=== PATIENT | female | born 1985 | race Caucasian/White ===

== ENCOUNTER 2019-03-04 20:06 | Inpatient (IN) | payer BC ==
[~2019-03-04] VITALS: Ht 167.6 cm; Wt 70.0 kg
[2019-03-04] MEDS ORDERED: KETOROLAC 30 MG INJ IV STA (20:13)
[2019-03-04 20:17] VITALS: Ht 167.6 cm; Wt 70.0 kg
[2019-03-04 20:24] VITALS: BP 102/68; PULSE 84; RESP 17
[2019-03-04] MEDS ORDERED: LIDOCAINE 1% (MPF) 30 ML INJ INJ PRN (20:30)
[2019-03-04] MEDS ORDERED: OXYTOCIN 30 UNITS/LR 500 ML IV SCH ×3 (20:30→23:52)
[2019-03-04] MEDS ORDERED: MISOPROSTOL 200 MCG TAB PR PRN (20:30)
[2019-03-04] MEDS ORDERED: OXYTOCIN 30 UNITS/LR 500 ML IV PRN (20:30)
[2019-03-04] MEDS ORDERED: BUTORPHANOL 2 MG INJ IV PRN (20:30)
[2019-03-04] MEDS ORDERED: METHYLERGONOVINE 0.2 MG INJ IM PRN (20:30)
[2019-03-04] MEDS ORDERED: CARBOPROST 250 MCG INJ IM PRN (20:30)
[2019-03-04] MEDS ORDERED: IBUPROFEN 600 MG TAB PO PRN (20:30)
[2019-03-04] MEDS: HYDROCODONE/APAP (5/325) TAB PO PRN (21:33)
--- NOTE | 2019-03-04 23:02 | HP ---
Date/Time of Note Date/Time of Note DATE: 03/04/19 TIME: 22:58 OB - History Hx of Present Free Text/Dictation 03/04/2019 : 2 Para: 1 Spontaneous : 0 Therapeutic : 0 Care: Good Care Other Concerns: 33-year-old G2, P1 with IUP at 40 weeks and care in [facility] was brought by ambilance and by paramedics after she had delivered the baby at home. Per patient had precipitous vaginal delivery at home 2 hours after she had spontaneous rupture membrane. Reports she was seen in the doctor's office today and was 3 cm dilated. Per patient, was sent home due to no cervical change for the past week during office visit exam. Patient reports history of anemia and chronic disease during , but had been stable during and asymptomatic.. She was not on any medication. She delivered a baby at home. Cord was cut by paramedics. Denies any incidents to the fetus. Fetus was delivered when the patient was on the floor and without any trauma to the fetus. Placenta was then delivered shortly after delivery of the fetus. Upon arrival patient had moderate to heavy vaginal bleeding with passing large clots. Reported having cramps. Exam performed and noted to have second-degree perineal laceration. No records was available at the time of adhesion. Estimated blood loss: 900 cc Past medical history: 1. History of anemia 2. History of chronic disease Past surgical history: None History: NKDA Social history: Denies of smoking drinking alcohol or using any drugs MOBILE SALES EXPERT history: G2, P2. Status post x2, precipitous delivery, hemorrhage and second status post spontaneous rupture membrane. 2 hours prior to delivery Past Family/Social History * Past Medical, Surgical, Family and Obstetric Histories reviewed from chart. OB Admission Exam Vital Signs Vital Signs Vital Signs Date Temp Pulse Resp B/P (MAP) Pulse Ox O2 O2 Flow FiO2 Time Delivery Rate 03/04/19 98.0 84 17 102/68 Room Air 20:24 (79) Physical Exam HEENT: WNL Lungs: Clear Abdomen: WNL Extremities: Normal Reflexes: Normal Cervical Dilatation: 10cm Effacement: 100% Station: Other (Status post at home) Membranes: Ruptured Heart Rate: 130's Last 72 hours Lab Results CBC & BMP 03/04/19 20:44 OB Assessment/Plan Other Assessment: IUP at 40 weeks Precipitous delivery after SROM at home hemorrhage. Controlled using IV Pitocin and uterine massage second-degree perineal laceration noted in the evaluation of the perineum. After local infiltration of 6 cc lidocaine using 2-0 chromic the area repaired. Hemostasis was complete. No complication Fundus was firm at the end of the delivery. Patient will be transferred to floor, after 1 hour observation. Follow-up with CBC and hemoglobin. Patient currently asymptomatic however precaution was given to have ambulation with nursing assistance Follow-up with hemoglobin WU OCONNOR MD March 04, 2019 23:02
--- NOTE | 2019-03-04 23:43 | DELSUM ---
Delivery Summary A-C Datetime Report Generated by CPN: 03/04/2019 23:43 DELIVERY PERSONNEL Financial Cost Analyst: Ulloa, Ramya MATERNAL INFORMATION Delivery Anesthesia: None Medications in Delivery: 30 UNIT PITOCIN Delivery QBL (ml): 948 Placenta Cultured: No Maternal Complications: Precip Labor <3hrs; Other Other Maternal Complications: PT DELIVERED AT HOME LABOR SUMMARY EDC: 03/04/2019 00:00 No. Babies in Womb: 1 Attempted: No Labor Anesthesia: None LABOR INFORMATION Reason for Induction: Not Applicable Onset of Labor: 03/04/2019 19:00 Onset of Labor: 03/04/2019 19:09 Complete Dilatation: 03/04/2019 19:33 Oxytocin: N/A Group B Beta Strep: Negative Group B Beta Strep: Done, Result Unknown Antibiotics # of Doses: 0 Steroids Given: None Reason Steroids Not Administered: Not Applicable MEMBRANES Membranes Rupture Method: Spontaneous Rupture of Membranes: 03/04/2019 19:09 Length of Rupture (hr): 0.40 Amniotic Fluid Color: Clear STAGES OF LABOR Stage 1 hr: 0 Stage 1 hr: 0 Stage 1 min: 33 Stage 1 min: 24 Stage 2 hr: 0 Stage 2 min: 0 Stage 3 hr: 0 Stage 3 min: 12 Total Time in Labor hr: 0 Total Time in Labor hr: 0 Total Time in Labor min: 45 Total Time in Labor min: 36 VAGINAL DELIVERY Episiotomy: None Laceration Extension: Second Degree Laceration Type: Perineal Laceration Repair: Yes Initial Vag Sponge Count: 10 Final Vag Sponge Count: 10 Initial Vag Sharps Count: 1 Final Vag Sharps Count: 2 Sponge Count Correct: Yes; Vaginal Sweep Performed Sharps Count Correct: Yes BABY A INFORMATION Infant Delivery Date/Time: 03/04/2019 19:33 Method of Delivery: Vaginal Born in Route : Yes : N/A Forceps: N/A Vacuum Extraction: N/A Shoulder Dystocia : N/A SHOULDER DYSTOCIA BABY A Delivery Date/Time: 03/04/2019 19:33 PRESENTATION/POSITION BABY A Presentation: Cephalic Cephalic Presentation: Vertex Breech Presentation: N/A PLACENTA INFORMATION BABY A Placenta Delivery Time : 03/04/2019 19:45 Placenta Method of Delivery: Spontaneous Placenta Status: Delivered SCORES BABY A Heart Rate 1 min: >100 bpm Resp Effort 1 min: Slow, Irregular Reflex Irritability 1 min: Grimace Muscle Tone 1 min: Some Flexion of Extrem Color 1 min: Body [place], Extremit Blue SCORE 1 MIN: 6 Heart Rate 5 min: Slow, Below 100 bpm Resp Effort 5 min: Good Cry Reflex Irritability 5 min: Grimace Muscle Tone 5 min: Some Flexion of Extrem Color 5 min: Completely [place] SCORE 5 MIN: 7 Heart Rate 20 min: >100 bpm Resp Effort 20 min: Good Cry Reflex Irritability 20 min: Cough/Sneeze/Pulls Away Muscle Tone 20 min: Active Motion Color 20 min: Completely [place] SCORE 20 MIN: 10 INFORMATION BABY A Gestational Age at Delivery: 40.0 Gestational Status: Full Term- 39- 40.6 Weeks Outcome : Liveborn Condition : Stable Sex: Female IDENTIFICATION/MEDS BABY A ID Band Number: [id number] ID Band Location: Right Leg; Left Arm Sensor Applied: Yes Sensor Number: [id number] Sensor Location : Cord Clamp Vitamin K Given : Not Given Erythromycin Given: Not Given WEIGHT/LENGTH BABY A Birthweight (gm): 3435 Infant Weight (lb): 7 Infant Weight (oz): 9 Length (in): 19.00 Length (cm): 48.26 CORD INFORMATION BABY A No. Cord Vessels: 3 Nuchal Cord : N/A Cord Blood Taken: No Infant Suction: Mouth; Nose ASSESSMENT BABY A Infant Complications: None Physical Findings at Delivery: Within Normal Limits Infant Respirations: Appears Normal Motor Vehicle Salesperson/ALS Called : No Infant Care By: Domitila KENNEDY Transferred To: Remains with Mother
[2019-03-05] MEDS ORDERED: NACL 0.9% 3 ML SYG IV SCH
[2019-03-05] MEDS ORDERED: HYDROCODONE/APAP (5/325) TAB PO PRN ×2
[2019-03-05] MEDS ORDERED: OXYCODONE/ASPIRIN (4.88/325) TAB PO PRN ×2
[2019-03-05] MEDS ORDERED: METHYLERGONOVINE 0.2 MG INJ IM PRN
[2019-03-05] MEDS ORDERED: OXYTOCIN 30 UNITS/LR 500 ML IV PRN
[2019-03-05] MEDS ORDERED: CARBOPROST 250 MCG INJ IM PRN
[2019-03-05] MEDS ORDERED: MISOPROSTOL 200 MCG TAB PR PRN
[2019-03-05 01:02] VITALS: BP 108/65; PULSE 68; RESP 19
[2019-03-05 04:00] VITALS: BP 104/63; PULSE 65; RESP 19
[2019-03-05] MEDS: IBUPROFEN 600 MG TAB PO SCH ×4 (06:00→20:08)
[2019-03-05] MEDS: HYDROCODONE/APAP (5/325) TAB PO PRN ×3 (07:22→20:06)
[2019-03-05] MEDS ORDERED: LANOLIN HPA 1 PKT TOP PRN (15:30)
[2019-03-05] MEDS ORDERED: BENZOCAINE 20% 56 ML SPRAY TOP PRN (15:30)
[2019-03-05 16:00] VITALS: BP 95/63; PULSE 83; RESP 18
--- NOTE | 2019-03-05 17:21 | PN ---
Date/Time of Note Date/Time of Note DATE: 03/05/19 TIME: 17:18 OB Subjective Subjective Subjective Patient denies any dizziness or lightheadedness. Breast-feeding. Ambulating. Reports fatigue. OB Objective Objective Objective General appearance: Alert and oriented x4 does not appear to be in any acute distress Abdomen: Soft, fundus firm and palpable at the level of my umbilicus and nontender Breasts: No evidence of engorgement mastitis Extremities: No calf tenderness, no click no edema no cord palpable VS - Last 72 Hours, by Label Date Temp Pulse Resp B/P (MAP) Pulse Ox O2 O2 Flow FiO2 Time Delivery Rate 03/05/19 98.0 65 19 104/63 Room Air 04:00 (77) 03/05/19 98.1 68 19 108/65 Room Air 01:02 (79) 03/04/19 98.0 84 17 102/68 Room Air 20:24 (79) Laboratory Tests Test 03/04/19 20:44 03/05/19 08:15 White Blood Count 12.3 H Red Blood Count 3.40 L Hemoglobin 9.7 L 7.7 #L Hematocrit 29.9 L 23.3 #L Mean Corpuscular Volume 87.9 Mean Corpuscular Hemoglobin 28.5 L Mean Corpuscular Hemoglobin Concent 32.4 Red Cell Distribution Width 15.2 H Platelet Count 221 Mean Platelet Volume 10.5 H Immature Granulocytes % 1.500 H Neutrophils % 78.4 H Lymphocytes % 13.2 L Monocytes % 6.3 Eosinophils % 0.3 Basophils % 0.3 Nucleated Red Blood Cells % 0.0 Immature Granulocytes # 0.190 H Neutrophils # 9.7 H Lymphocytes # 1.6 Monocytes # 0.8 Eosinophils # 0.0 Basophils # 0.0 Nucleated Red Blood Cells # 0.0 Prothrombin Time 13.3 Prothrombin Time Ratio 1.0 INR International Normalized Ratio 1.00 Activated Partial Thromboplast Time 23.8 Hepatitis B Surface Antigen NEGATIVE OB Assessment/Plan Other Assessment: day #1 Status post SR OM, precipitous delivery at home, brought by ambulance Anemia, hemorrhage. Patient reports fatigue. Hemodynamically stable Desires to start iron History of chronic disorder, was told by her GI not to take NSAIDs Cramps, responds well to Morrice Routine care Iron twice a day with stool softener Morrice for cramping WU OCONNOR MD March 05, 2019 17:21
[2019-03-05] MEDS ORDERED: DOCUSATE SODIUM 100 MG CAP PO SCH (17:30)
[2019-03-05 20:05] VITALS: BP 95/68; PULSE 85; RESP 18
[2019-03-05] MEDS: POLYSACCHARIDE IRON COMPLEX CAP PO SCH (20:06)
[2019-03-05] MEDS: LACTATED RINGER'S 1,000 ML IV SCH ×3 (20:07→23:00)
[2019-03-05] MEDS: DOCUSATE SODIUM 100 MG CAP PO PRN (20:15)
[2019-03-06 04:25] VITALS: BP 99/60; PULSE 87; RESP 18
[2019-03-06] MEDS: IBUPROFEN 600 MG TAB PO SCH ×3 (06:00→12:00)
[2019-03-06] MEDS: LACTATED RINGER'S 1,000 ML IV SCH (07:00)
[2019-03-06 08:00] VITALS: BP 94/57; PULSE 101; RESP 17
[2019-03-06] MEDS: POLYSACCHARIDE IRON COMPLEX CAP PO SCH (09:12)
[2019-03-06] MEDS: DOCUSATE SODIUM 100 MG CAP PO PRN (09:12)
--- NOTE | 2019-03-06 15:07 | PD.PPDC ---
SYSTEM DEVELOPMENT MANAGER Discharge Instruction Diagnosis [id number] Final Diagnosis: Negau2z S/P anemia Condition [id number] Patient Condition: [id number] Stable Diet [id number] Diet: Qikdv6n Resume Regular Diet Activity/Restrictions [id number] Activity: Uqhkc1r May Shower [id number] Restrictions: Cwssz5n No Exercising No Lifting No Sexual Activity Nothing in the Vagina No [place] No Tampons, douche Follow-up Follow-up with Physician: 2, Week/Weeks Return to clinic for [id number] TAX ACCOUNTING ASSISTANT Instructions: [id number] Fever greater than 101 Chills Worsening abdominal pain Excessive Vaginal Bleeding More than 2 pads per hour Unable to tolerate diet Dulll0Ee OB Instructions: [id number] Breast Tenderness Depression Blurried Vision Headache OLVIN PAREDES MD March 06, 2019 15:07
--- NOTE | 2019-03-06 18:23 | DS ---
Date/Time of Note Date/Time of Note DATE: 03/06/19 TIME: 18:20 Obstetrical Discharge Record Final Diagnosis Final Diagnosis: Term delivered Other Final Diagnosis anemia Vaginal Delivery Obstetrical Delivery: Spontaneous, Laceration, Repaired Complications Augmentation: No Induction: No Rupture of Membranes: No Condition on Discharge Physical Assessment Last Vitals: vss afebrile Voiding: Yes Bowel Movement: No Breast: Soft, non-tender Fundus: Firm Abdomen and Incision: n/a Episiotomy: n/a only laceration Calf Tenderness: No Patient Condition: Stable OLVIN PAREDES MD March 06, 2019 18:23
--- NOTE | 2019-03-07 16:59 | DELSUM ---
Delivery Summary A-C Datetime Report Generated by CPN: 03/07/2019 16:58 DELIVERY PERSONNEL Senior Product Designer: Ulloa, Ramya MATERNAL INFORMATION Delivery Anesthesia: None Medications in Delivery: 30 UNIT PITOCIN Delivery QBL (ml): 948 Placenta Cultured: No Maternal Complications: Precip Labor <3hrs; Other Other Maternal Complications: PT DELIVERED AT HOME LABOR SUMMARY EDC: 03/04/2019 00:00 No. Babies in Womb: 1 Attempted: No Labor Anesthesia: None LABOR INFORMATION Reason for Induction: Not Applicable Onset of Labor: 03/04/2019 19:00 Complete Dilatation: 03/04/2019 19:33 Oxytocin: N/A Group B Beta Strep: Negative Antibiotics # of Doses: 0 Steroids Given: None Reason Steroids Not Administered: Not Applicable MEMBRANES Membranes Rupture Method: Spontaneous Rupture of Membranes: 03/04/2019 19:09 Length of Rupture (hr): 0.40 Amniotic Fluid Color: Clear STAGES OF LABOR Stage 1 hr: 0 Stage 1 min: 33 Stage 2 hr: 0 Stage 2 min: 0 Stage 3 hr: 0 Stage 3 min: 12 Total Time in Labor hr: 0 Total Time in Labor min: 45 VAGINAL DELIVERY Episiotomy: None Laceration Extension: Second Degree Laceration Type: Perineal Laceration Repair: Yes Initial Vag Sponge Count: 10 Final Vag Sponge Count: 10 Initial Vag Sharps Count: 1 Final Vag Sharps Count: 2 Sponge Count Correct: Yes; Vaginal Sweep Performed Sharps Count Correct: Yes BABY A INFORMATION Infant Delivery Date/Time: 03/04/2019 19:33 Method of Delivery: Vaginal Born in Route : Yes : N/A Forceps: N/A Vacuum Extraction: N/A Shoulder Dystocia : N/A SHOULDER DYSTOCIA BABY A Infant Delivery Date/Time: 03/04/2019 19:33 PRESENTATION/POSITION BABY A Presentation: Cephalic Cephalic Presentation: Vertex Breech Presentation: N/A PLACENTA INFORMATION BABY A Placenta Delivery Time : 03/04/2019 19:45 Placenta Method of Delivery: Spontaneous Placenta Status: Delivered SCORES BABY A Heart Rate 1 min: >100 bpm Resp Effort 1 min: Slow, Irregular Reflex Irritability 1 min: Grimace Muscle Tone 1 min: Some Flexion of Extrem Color 1 min: Body [place], Extremit Blue SCORE 1 MIN: 6 Heart Rate 5 min: Slow, Below 100 bpm Resp Effort 5 min: Good Cry Reflex Irritability 5 min: Grimace Muscle Tone 5 min: Some Flexion of Extrem Color 5 min: Completely [place] SCORE 5 MIN: 7 Heart Rate 20 min: >100 bpm Resp Effort 20 min: Good Cry Reflex Irritability 20 min: Cough/Sneeze/Pulls Away Muscle Tone 20 min: Active Motion Color 20 min: Completely [place] SCORE 20 MIN: 10 INFORMATION BABY A Gestational Age at Delivery: 40.0 Gestational Status: Full Term- 39- 40.6 Weeks Infant Outcome : Liveborn Infant Condition : Stable Sex: Female IDENTIFICATION/MEDS BABY A ID Band Number: [id number] ID Band Location: Right Leg; Left Arm Sensor Applied: Yes Sensor Number: [id number] Sensor Location : Cord Clamp Vitamin K Given : Not Given Erythromycin Given: Not Given WEIGHT/LENGTH BABY A Birthweight (gm): 3435 Weight (lb): 7 Weight (oz): 9 Infant Length (in): 19.00 Length (cm): 48.26 CORD INFORMATION BABY A No. Cord Vessels: 3 Nuchal Cord : N/A Cord Blood Taken: No Infant Suction: Mouth; Nose ASSESSMENT BABY A Complications: None Physical Findings at Delivery: Within Normal Limits Respirations: Appears Normal Drain Cleaner/ALS Called : No Care By: Domitila KENNEDY Transferred To: Remains with Mother
== END 2019-03-06 15:40 | disposition home or self-care (01) | DRG 769 ==
LOC: OBT 20:06 → L-D 20:07 → OBT 20:07 → L-D 20:07 → PP1 23:06
PROVIDERS: ADMIT Obstetrics & Gynecology Obstetrics; ATTEND Obstetrics & Gynecology Obstetrics
PROC: 0W3R7ZZ Control Bleeding in Genitourinary Tract, Via Natural or Artificial Opening (ICD-10-PCS; principal; 2019-03-04)
PROC: 0KQM0ZZ Repair Perineum Muscle, Open Approach (ICD-10-PCS; 2019-03-04)
DX: Z39.0 Encounter for care and examination of mother immediately after delivery (principal); O72.1 Other immediate postpartum hemorrhage; O70.1 Second degree perineal laceration during delivery; O90.81 Anemia of the puerperium; Z3A.40 40 weeks gestation of pregnancy; Z37.0 Single live birth
CPT/HCPCS: 85014; 85018; 85025; 85610; 85730; 86592; 86762; 86850; 86900; 86901; 87340; J0595; J1885; J2590; J7120